=== PATIENT | male | born 1995 | race Caucasian/White ===

== ENCOUNTER 2016-09-22 15:41 | Emergency (ER) | payer BC, OTHER ==
[~2016-09-22] VITALS: Ht 177.8 cm; Wt 83.9 kg
[2016-09-22] MEDS ORDERED: LACTATED RINGERS 1,000 ML IV ONE (16:08)
[2016-09-22] MEDS ORDERED: ONDANSETRON 4 MG/2 ML (SDV) Z0FRAN IVP ONE (17:15)
[2016-09-22 17:18] LABS: BASOPHILS % (AUTO) 0 % (0-10); EOSINOPHILS % (AUTO) 0 % (0-10); LYMPHOCYTES # (AUTO) 0.9 X 10^3 (1.0-4.0); LYMPHOCYTES % (AUTO) 5 % (12-44); MEAN CORPUSCULAR HEMOGLOBIN 29 PG (25-34); MEAN CORPUSCULAR HGB CONC 34 G/DL (32-36); MEAN CORPUSCULAR VOLUME 85 FL (80-99); MEAN PLATELET VOLUME 10.7 FL (7.4-10.4); MONOCYTES # (AUTO) 0.9 X 10^3 (0.0-1.0); MONOCYTES % (AUTO) 5 % (0-12); NEUTROPHILS # (AUTO) 15.6 X 10^3 (1.8-7.8); NEUTROPHILS % (AUTO) 90 % (42-75); PLATELET COUNT 386 10^3/uL (130-400); RED BLOOD COUNT 5.38 10^6/uL (4.35-5.85); RED CELL DISTRIBUTION WIDTH 12.8 % (10.0-14.5); WHITE BLOOD COUNT 17.4 10^3/uL (4.3-11.0)
[2016-09-22 17:30] LABS: BAND NEUTROPHILS 0 %; BASOPHILS % (MANUAL) 1 %; EOSINOPHILS % (MANUAL) 0 %; LYMPHOCYTES % (MANUAL) 9 %; NEUTROPHILS % (MANUAL) 90 %
[2016-09-22 17:38] LABS: ALANINE AMINOTRANSFERASE 37 U/L (0-55); ALBUMIN 5.7 G/DL (3.2-4.5); ANION GAP 20 MMOL/L (5-14); ASPARTATE AMINO TRANSFERASE 43 U/L (5-34); BILIRUBIN,TOTAL 1.5 MG/DL (0.1-1.0); BLOOD UREA NITROGEN 19 MG/DL (7-18); BUN/CREATININE RATIO 15; CALCIUM 10.7 MG/DL (8.5-10.1); CARBON DIOXIDE 16 MMOL/L (21-32); CHLORIDE 102 MMOL/L (98-107); CREATININE SERUM 1.31 MG/DL (0.60-1.30); GFR ESTIMATED > 60; GLUCOSE 97 MG/DL (70-105); SODIUM 138 MMOL/L (135-145); TOTAL PROTEIN 8.5 G/DL (6.4-8.2)
[2016-09-22] MEDS ORDERED: NS IV 1000 ML 1,000 ML IV ONE (17:46)
[2016-09-22] MEDS ORDERED: ONDA4TAB8 SL (17:55)
[2016-09-22] MEDS ORDERED: HYOS0.1283 SL (17:55)
--- NOTE | 2016-09-22 17:55 | ED GI ---
General Chief Complaint: Abdominal/GI Problems Stated Complaint: VOMITING/MUSCLE CRAMPS/DIARRHEA Source of Information: Patient Exam Limitations: No Limitations History of Present Illness Time Seen By Provider: 16:10 Initial Comments This 20-year-old gentleman presents to the emergency room with complaints of diarrhea last night followed by profound and nausea and vomiting today. He has had intermittent chills without fever. He has not taken any medications. He denies any hematemesis or hematochezia. He has some abdominal cramping but no significant abdominal tenderness. Allergies and Home Medications Allergies Coded Allergies: No Known Drug Allergies (Unverified , 09/22/16) Home Medications Hyoscyamine Sulfate 0.125 Mg Tab.subl, 0.125 MG SL Q4H PRN for CRAMPS, #10 Prescribed by: AMY BARON on 09/22/161754 Ondansetron 4 Mg Tab.rapdis, 4 MG SL Q4H PRN for NAUSEA/VOMITING-1ST LINE, #10 Prescribed by: AMY BARON on 09/22/161754 Review of Systems Constitutional: see HPI EENTM: No Symptoms Reported Respiratory: No Symptoms Reported Cardiovascular: No Symptoms Reported Gastrointestinal: See HPI Genitourinary: No Symptoms Reported Musculoskeletal: no symptoms reported Skin: no symptoms reported Psychiatric/Neurological: No Symptoms Reported Endocrine: No Symptoms Reported Past Xbdigko-Dzpiac-Xnunkl Hx Patient Social History Recent Foreign Travel: No Contact w/Someone Who Travel: No Surgeries HX Surgeries: Yes Surgeries: Abdominal (hernia repair), Appendectomy, Testicular (correction of cryptorchidism) Respiratory Hx Respiratory Disorders: No Cardiovascular Hx Cardiac Disorders: Yes Cardiac Disorders: 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", follows with cardiology) Neurological Hx Neurological Disorders: No Genitourinary Hx Genitourinary Disorders: No Gastrointestinal Hx Gastrointestinal Disorders: No Musculoskeletal Hx Musculoskeletal Disorders: No Endocrine Hx Endocrine Disorders: No HEENT HX ENT Disorders: No Cancer Hx Cancer: No Psychosocial Hx Psychiatric Problems: No Integumentary HX Skin/Integumentary Disorder: No Physical Exam Vital Signs VS - Last 72 Hours, by Label 09/22/16 09/22/16 17:11 18:46 Temp 99.8 Pulse 86 86 Resp 14 16 B/P (MAP) 168/79 Pulse Ox 98 98 O2 Delivery Room Air Capillary Refill : General Appearance: WD/WN, no apparent distress HEENT: PERRL/EOMI, normal ENT inspection, pharynx normal Neck: normal inspection Respiratory: lungs clear, normal breath sounds, no respiratory distress, no accessory muscle use Cardiovascular: regular rate, rhythm, no edema, systolic murmur Gastrointestinal: normal bowel sounds, non tender, soft Extremities: normal inspection, no pedal edema Neurologic/Psychiatric: [employer] unit [employer] II-XII nml as tested, no motor/sensory deficits, alert, normal mood/affect, oriented x 3 Skin: normal color, warm/dry Progress/Results/Core Measures Results/Orders Lab Results Laboratory Tests Test 09/22/16 17:09 Range/Units White Blood Count 17.4 H 4.3-11.0 10^3/uL Red Blood Count 5.38 4.35-5.85 10^6/uL Hemoglobin 15.7 13.3-17.7 G/DL Hematocrit 46 40-54 % Mean Corpuscular Volume 85 80-99 FL Mean Corpuscular Hemoglobin 29 25-34 PG Mean Corpuscular Hemoglobin Concent 34 32-36 G/DL Red Cell Distribution Width 12.8 10.0-14.5 % Platelet Count 386 130-400 10^3/uL Mean Platelet Volume 10.7 H 7.4-10.4 FL Neutrophils (%) (Auto) 90 H 42-75 % Lymphocytes (%) (Auto) 5 L 12-44 % Monocytes (%) (Auto) 5 0-12 % Eosinophils (%) (Auto) 0 0-10 % Basophils (%) (Auto) 0 0-10 % Neutrophils # (Auto) 15.6 H 1.8-7.8 X 10^3 Lymphocytes # (Auto) 0.9 L 1.0-4.0 X 10^3 Monocytes # (Auto) 0.9 0.0-1.0 X 10^3 Eosinophils # (Auto) 0.0 0.0-0.3 10^3/uL Basophils # (Auto) 0.0 0.0-0.1 10^3/uL Neutrophils % (Manual) 90 % Lymphocytes % (Manual) 9 % Monocytes % (Manual) 0 % Eosinophils % (Manual) 0 % Basophils % (Manual) 1 % Band Neutrophils 0 % Blood Morphology Comment NORMAL Sodium Level 138 135-145 MMOL/L Potassium Level 5.0 3.6-5.0 MMOL/L Chloride Level 102 98-107 MMOL/L Carbon Dioxide Level 16 L 21-32 MMOL/L Anion Gap 20 H 5-14 MMOL/L Blood Urea Nitrogen 19 H 7-18 MG/DL Creatinine 1.31 H 0.60-1.30 MG/DL Estimat Glomerular Filtration Rate > 60 BUN/Creatinine Ratio 15 Glucose Level 97 70-105 MG/DL Calcium Level 10.7 H 8.5-10.1 MG/DL Magnesium Level 2.0 1.8-2.4 MG/DL Total Bilirubin 1.5 H 0.1-1.0 MG/DL Aspartate Amino Transf (AST/SGOT) 43 H 5-34 U/L Alanine Aminotransferase (ALT/SGPT) 37 0-55 U/L Alkaline Phosphatase 72 40-136 U/L Total Protein 8.5 H 6.4-8.2 G/DL Albumin 5.7 H 3.2-4.5 G/DL My Orders Orders - AMY PARMAR MD Cbc With Automated Diff (09/22/16 16:08) Comprehensive Metabolic Panel (09/22/16 16:08) Magnesium (09/22/16 16:08) Saline Lock/Iv-Start (09/22/16 16:08) Lactated Ringers (Lr 1000 Ml Iv Solution (09/22/16 16:08) Ondansetron Injection (Zofran Injectio (09/22/16 17:15) Manual Differential (09/22/16 17:09) Ns Iv 1000 Ml (Sodium Chloride 0.9%) (09/22/16 17:46) Promethazine Injection (Phenergan Injec (09/22/16 18:00) Hyoscyamine Sl Tablet (Levsin Sl Tablet) (09/22/16 18:00) Rx-Ondansetron Po (Rx-Zofran Po) (09/22/16 18:06) Rx-Hyoscyamine Tab (Rx-Levsin Sl) (09/22/16 18:06) Medications Given in ED Vital Signs/I&O Vital Sign - Last 12Hours 09/22/16 09/22/16 17:11 18:46 Temp 99.8 Pulse 86 86 Resp 14 16 B/P (MAP) 168/79 Pulse Ox 98 98 O2 Delivery Room Air Progress Note : Progress Note patient was treated with a liter of lactated Ringer's. After labs are reviewed second liter of fluids was ordered. Nausea was initially treated with Zofran. He had some refractory nausea which was treated with Phenergan. Levsin was used for bowel cramping and diarrhea. Take-home packet of Levsin and Zofran were provided. Departure Impression Impression: Primary Impression: Nausea vomiting and diarrhea Additional Impression: Intestinal cramps Disposition: HOME, SELF-CARE Condition: Improved Departure-Patient Inst. Decision time for Depature: 17:51 Referrals: NO,LOCAL PHYSICIAN (PCP) Primary Care Physician Patient Instructions: Nausea and Vomiting, Adult Add. Discharge Instructions: Drink plenty of clear liquids. Gradually advance your diet with small quantities of bland food as tolerated. Dissolve Zofran (ondansetron) under the tongue every 4 hours as needed for nausea and vomiting. Use the Levsin (hyoscyamine) dissolved under the tongue every 4 hours as needed for intestinal cramping or diarrhea. Return to emergency room if symptoms worsen. All discharge instructions reviewed with patient and/or family. Voiced understanding. Scripts Ondansetron (Zofran Odt) 4 Mg Tab.rapdis 4 MG SL Q4H Y for NAUSEA/VOMITING-1ST LINE, #10 TAB Prov: AMY PARMAR MD 09/22/16 Hyoscyamine Sulfate (Levsin-Sl) 0.125 Mg Tab.subl 0.125 MG SL Q4H Y for CRAMPS, #10 TAB Prov: AMY PARMAR MD 09/22/16 AMY PARMAR MD September 22, 2016 17:55
[2016-09-22] MEDS ORDERED: HYOSCYAMINE 0.125 MG (LEVSIN) TAB PO ONE (18:00)
[2016-09-22] MEDS ORDERED: PROMETHAZINE INJ 25 MG/ML (PHENERGAN) AMP IVP ONE (18:00)
[2016-09-22] MEDS ORDERED: RX-HYOSCYAMINE 0.125 MG SL (LEVSIN) PPK#6 SL STA (18:06)
[2016-09-22] MEDS ORDERED: RX-ONDANSETRON 4 MG ODT (ZOFRAN) PPK #4 SL STA (18:06)
[2016-09-22 18:46] VITALS: BP 151/72
== END 2016-09-22 18:50 | disposition home or self-care (01) ==
LOC: ER 15:45
DX: R11.2 Nausea with vomiting, unspecified (principal); R19.7 Diarrhea, unspecified; R10.30 Lower abdominal pain, unspecified
CPT/HCPCS: 36415; 80053; 83735; 85007; 85027